=== PATIENT | female | born 1940 | race Caucasian/White ===

== ENCOUNTER 2017-08-07 22:55 | Emergency (ER) | payer MEDICARE, OTHER ==
[2017-08-08] MEDS: ASPIRIN 325 MG TAB PO (02:09)
[2017-08-08 02:24] LABS: ADD MAN DIFF? NO
[2017-08-08 02:25] LABS: WHITE BLOOD COUNT 10.9 10^3/ul (4.8-10.8)
[2017-08-08 02:25] LABS: BASOPHILS % 0.3 % (0.0-2.0); EOSINOPHILS # 0.1 10^3/ul (0.0-0.5); EOSINOPHILS % 0.6 % (0.0-7.0); HEMATOCRIT 31.9 % (37.0-47.0); HEMOGLOBIN 10.4 g/dl (12.0-16.0); LYMPHOCYTES % 18.5 % (15.0-51.0); MEAN CORPUSCULAR HEMOGLOBIN 29.4 pg (29.0-33.0); MEAN CORPUSCULAR HGB CONC 32.6 g/dl (32.0-37.0); MEAN CORPUSCULAR VOLUME 90.1 fl (82.0-101.0); MONOCYTE # 0.8 10^3/ul (0.3-0.9); MONOCYTES % 7.2 % (0.0-11.0); NEUTROPHIL # 7.9 10^3/ul (1.6-7.5); NEUTROPHILS % 73.1 % (39.0-77.0); PLATELET COUNT 375 10^3/UL (140-415); RED BLOOD COUNT 3.54 10^6/ul (4.20-5.40)
[2017-08-08 02:52] LABS: ANION GAP 18 (8-16); BLOOD UREA NITROGEN 23 mg/dl (7-20); CALCIUM 9.5 mg/dl (8.4-10.2); CARBON DIOXIDE 21 mmol/L (21-31); CHLORIDE 108 mmol/L (97-110); CREATININE 1.23 mg/dl (0.44-1.00); GLUCOSE 134 mg/dl (70-220); LIPASE 191 U/L (23-300); SODIUM 143 mmol/L (135-144)
[2017-08-08 03:04] LABS: B-TYPE NATRIURETIC PEPTIDE 202 PG/ML (0-450)
[2017-08-08 03:06] LABS: TROPONIN-I < 0.012 ng/ml (0.00-0.12)
== END 2017-08-08 04:26 | disposition home or self-care (01) ==
LOC: E/R 22:55
DX: R06.00 Dyspnea, unspecified (principal); N28.9 Disorder of kidney and ureter, unspecified; R06.01 Orthopnea; D64.9 Anemia, unspecified; I10 Essential (primary) hypertension
CPT/HCPCS: 36415; 71045; 80048; 83690; 83880; 84484; 85025; 93005; 99285-25

== ENCOUNTER 2018-09-09 06:42 | Emergency (ER) | payer MEDICARE, OTHER | END 2018-09-09 10:14 | disposition home or self-care (01) | LOC: E/R 06:42 | DX: I10 Essential (primary) hypertension (principal); E11.9 Type 2 diabetes mellitus without complications | CPT/HCPCS: 82962; 99282 ==